=== PATIENT | male | born 1980 | race Caucasian/White ===

== ENCOUNTER 2016-08-23 16:42 | Emergency (ER) | payer MEDICAID ==
[2016-08-23 16:46] VITALS: BP 121/72; PULSE 97; RESP 14; TEMP 97.5; O2SAT 96
--- NOTE | 2016-08-23 17:04 | EDPHY ---
H & P Time Seen by Provider: 08/23/16 16:57 HPI/ROS: CHIEF COMPLAINT: Right foot and ankle injury HISTORY OF PRESENT ILLNESS: 36-year-old male presents to the emergency department by private vehicle complaining of pain in his right foot and ankle. Patient states that 3:00 p.m. today he was on his skateboard and had stopped abruptly and fell off of his skateboard rolling his right ankle. He complains of isolated pain to the right foot and ankle. He has pain especially when he tries to bear weight. He denies hitting his head or losing consciousness. Denies any other trauma or injury. ROS: Denies numbness or tingling in his toes, pain in his right calf, right knee or hip. Past Medical/Surgical History: Negative Social History: Smoking Status: Never smoked Physical Exam: On examination there is no obvious effusion noted to the right ankle. He has pain with palpation both the medial and lateral malleolus. Also has pain with palpation over the dorsal lateral aspect of the right foot along the base of the 5th metatarsal. He has full dorsi and plantar flexion although this does cause pain. His Achilles tendon is intact. Normal sensation to light touch with normal 2 point discrimination. No abrasion or puncture wound. Strong dorsalis pedis pulse on the dorsal aspect of the right foot. His right calf and proximal leg are nontender. Right knee is nontender. Right hip is nontender and has full mobility. Constitutional: Initial Vital Signs Temperature (C) 36.4 C 08/23/16 16:43 Heart Rate 97 08/23/16 16:43 Respiratory Rate 14 08/23/16 16:43 Blood Pressure 121/72 H 08/23/16 16:43 O2 Sat (%) 96 08/23/16 16:43 O2 Delivery Mode Room Air Allergies/Adverse Reactions: No Known Allergies Allergy (Unverified 08/23/16 16:46) MDM/Departure - MDM Imaging Results: Imaging Impressions Ankle X-Ray 08/23/16 16:58 Impression: Nothing acute identified. 2. Right Foot , 3 views History:Pain post trauma. Skateboarding injury. Findings: No obvious acute fracture or dislocation is identified. Flattening of the second metatarsal head may be related to remote trauma since there is no obvious soft tissue swelling. 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 Incidentally noted is a benign osseous lipoma within the central calcaneus. Impression: 1. Indeterminate age flattening of the second metatarsal head. Correlation with the site of symptoms is suggested. 2. Swollen fourth toe without fracture. Foot X-Ray 08/23/16 17:01 Impression: Nothing acute identified. 2. Right Foot , 3 views History:Pain post trauma. Skateboarding injury. Findings: No obvious acute fracture or dislocation is identified. Flattening of the second metatarsal head may be related to remote trauma since there is no obvious soft tissue swelling. 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 Incidentally noted is a benign osseous lipoma within the central calcaneus. Impression: 1. Indeterminate age flattening of the second metatarsal head. Correlation with the site of symptoms is suggested. 2. Swollen fourth toe without fracture. Imaging: I viewed and interpreted images myself Procedures: Patient was placed in Sutton boot and examined post application in good placement with normal MATERIALS MANAGER. ED Course/Re-evaluation: 36-year-old male presents to the emergency department with right ankle injury. X -rays reveal no fractures in the right foot or ankle. Placed in Sutton boot and given orthopedic referral. The patient asked for narcotic pain medication. I explained to the patient that given our new alternative to opiate program, I encouraged him to continue taking anti-inflammatories and Tylenol for pain. Patient verbalized understanding and agreed. - Depart Disposition: Home, Routine, Self-Care Clinical Impression: Right ankle sprain Qualifiers: Encounter type: initial encounter Involved ligament of ankle: unspecified ligament Qualified Code(s): S93.401A - Sprain of unspecified ligament of right ankle, initial encounter Right foot sprain Qualifiers: Encounter type: initial encounter Qualified Code(s): S93.601A - Unspecified sprain of right foot, initial encounter Condition: Good Instructions: Ankle Sprain (ED) Additional Instructions: Sutton boot for comfort and support. Weightbear as tolerated. Ibuprofen 600 mg every 8 hours as needed for pain. Follow up with orthopedic surgeon in 1 week to recheck. Referrals: Jakob Dietz MD [Medical Doctor] - 5-7 days, call for appt. (Orthopedic surgeon on-call)
== END 2016-08-23 18:10 | disposition home or self-care (01) ==
PROC: 2W3QX1Z Immobilization of Right Lower Leg using Splint (ICD-10-PCS; principal; 2016-08-23)
DX: S93.401A Sprain of unspecified ligament of right ankle, initial encounter (principal); S93.601A Unspecified sprain of right foot, initial encounter; V00.131A Fall from skateboard, initial encounter; Y99.8 Other external cause status; Y93.51 Activity, roller skating (inline) and skateboarding
CPT/HCPCS: L4386